=== PATIENT | female | born 2005 | race Caucasian/White ===

== ENCOUNTER 2024-07-21 17:16 | Emergency (ER) | payer BC ==
[~2024-07-21] VITALS: Ht 170.2 cm; Wt 70.5 kg
[2024-07-21 17:20] VITALS: BP 141/94; PULSE 94; TEMP 98.7
== END 2024-07-21 18:13 | disposition home or self-care (01) ==
LOC: COL.ER 17:16
DX: S61.211A Laceration without foreign body of left index finger without damage to nail, initial encounter (principal); W26.0XXA Contact with knife, initial encounter; Y93.G3 Activity, cooking and baking